=== PATIENT | female | born 1940 | race Caucasian/White ===

== ENCOUNTER → 2021-07-16 | Outpatient (CLI) | payer OTHER ==
[2021-07-16 14:08] LABS: BILIRUBIN,TOTAL 0.4 MG/DL (0.2-1.0); CREATININE FOR GFR 1.13 MG/DL (0.55-1.30); GLOMERULAR FILTRATION RATE 49.6 (>39); POTASSIUM SERUM 4.9 MEQ/L (3.5-5.1); THYROID STIMULATING HORMONE 1.81 uIU/ML (0.358-3.740); TOTAL 25(OH) VITAMIN D 29.4 NG/ML (30.0-100.0); TOTAL PROTEIN 7.1 GM/DL (6.4-8.2)
== END ==
LOC: M PLALAB 10:18
PROVIDERS: ATTEND Nurse Practitioner Adult Health
DX: E55.9 Vitamin D deficiency, unspecified (principal); E03.9 Hypothyroidism, unspecified; I12.9 Hypertensive chronic kidney disease with stage 1 through stage 4 chronic kidney disease, or unspecified chronic kidney disease; Z79.899 Other long term (current) drug therapy
CPT/HCPCS: 36415; 80053; 82306; 82607; 84443; G0463

== ENCOUNTER → 2022-01-05 | Outpatient (CLI) | payer OTHER ==
[2022-01-05 14:31] LABS: ALBUMIN 3.8 GM/DL (3.2-5.2); BILIRUBIN,TOTAL 0.3 MG/DL (0.2-1.0); CALCIUM LEVEL 10.6 MG/DL (8.8-10.2); CHOLESTEROL RISK RATIO 5.577 (<5); CREATININE FOR GFR 1.12 MG/DL (0.55-1.30); POTASSIUM SERUM 4.3 MEQ/L (3.5-5.1); THYROID STIMULATING HORMONE 0.054 uIU/ML (0.358-3.740); TOTAL PROTEIN 6.9 GM/DL (6.4-8.2)
== END ==
LOC: M PLALAB 11:00
PROVIDERS: ATTEND Nurse Practitioner Adult Health
DX: E55.9 Vitamin D deficiency, unspecified (principal); E07.9 Disorder of thyroid, unspecified; E78.00 Pure hypercholesterolemia, unspecified

== ENCOUNTER → 2022-04-14 | Outpatient (CLI) | payer OTHER ==
[2022-04-14 18:23] LABS: ALBUMIN 3.8 GM/DL (3.2-5.2); BILIRUBIN,TOTAL 0.4 MG/DL (0.2-1.0); CALCIUM LEVEL 10.6 MG/DL (8.8-10.2); CREATININE FOR GFR 1.29 MG/DL (0.55-1.30); GLOMERULAR FILTRATION RATE 42.4 (>39); THYROID STIMULATING HORMONE 0.021 uIU/ML (0.358-3.740); TOTAL PROTEIN 7.2 GM/DL (6.4-8.2)
== END ==
LOC: M PLAIMG 15:38 → M PLALAB 15:38
PROVIDERS: ATTEND Nurse Practitioner Adult Health
DX: M51.36 Other intervertebral disc degeneration, lumbar region (principal); M51.37 Other intervertebral disc degeneration, lumbosacral region; I51.7 Cardiomegaly; R91.8 Other nonspecific abnormal finding of lung field; M54.50 Low back pain, unspecified; R60.0 Localized edema; N18.31 Chronic kidney disease, stage 3a; E03.9 Hypothyroidism, unspecified

== ENCOUNTER → 2022-04-28 | Outpatient (CLI) | payer OTHER | LOC: M CARPUL 09:13 | PROVIDERS: ATTEND Nurse Practitioner Adult Health | DX: R60.0 Localized edema (principal); I70.0 Atherosclerosis of aorta; I34.0 Nonrheumatic mitral (valve) insufficiency ==

== ENCOUNTER → 2022-05-05 | Outpatient (REF) | payer OTHER | LOC: M SFHCPLAZ 10:52 | PROVIDERS: ATTEND Nurse Practitioner Adult Health | DX: R91.1 Solitary pulmonary nodule (principal); Z53.9 Procedure and treatment not carried out, unspecified reason ==

== ENCOUNTER → 2022-05-05 | Outpatient (CLI) | payer OTHER ==
[2022-05-05 12:28] LABS: CALCIUM LEVEL 10.3 MG/DL (8.8-10.2); CREATININE FOR GFR 1.94 MG/DL (0.55-1.30); GLOMERULAR FILTRATION RATE 26.5 (>39); POTASSIUM SERUM 4.7 MEQ/L (3.5-5.1)
== END ==
LOC: M LAB 10:48
PROVIDERS: ATTEND Nurse Practitioner Adult Health
DX: R91.1 Solitary pulmonary nodule (principal)

== ENCOUNTER → 2022-05-07 | Outpatient (CLI) | payer OTHER ==
[~2022-05-07] MED LIST: ISOVUE-370 76% 25ML SYRINGE As Ordered ONE
== END ==
LOC: M RAD 10:37
PROVIDERS: ATTEND Nurse Practitioner Adult Health
DX: R91.1 Solitary pulmonary nodule (principal); J98.4 Other disorders of lung; J47.9 Bronchiectasis, uncomplicated; R91.8 Other nonspecific abnormal finding of lung field
CPT/HCPCS: 71260; Q9967

== ENCOUNTER → 2022-06-12 | Outpatient (CLI) | payer OTHER ==
[2022-06-12 10:48] LABS: HEMATOCRIT 35.9 % (36.0-47.0); HEMOGLOBIN 11.7 g/dl (12.0-15.5); MEAN CORPUSCULAR HEMOGLOBIN 30.6 pg (27.0-33.0); MEAN CORPUSCULAR HGB CONC 32.6 g/dl (32.0-36.5); PLATELET COUNT, AUTOMATED 216 10^3/uL (150-450); RED BLOOD COUNT 3.82 10^6/uL (4.00-5.40); WHITE BLOOD COUNT 7.2 10^3/uL (4.0-10.0)
[2022-06-12 11:34] LABS: ALBUMIN 3.9 GM/DL (3.2-5.2); BILIRUBIN,TOTAL 0.4 MG/DL (0.2-1.0); CALCIUM LEVEL 10.7 MG/DL (8.8-10.2); CHOLESTEROL RISK RATIO 4.875 (<5); CREATININE FOR GFR 1.31 MG/DL (0.55-1.30); GLOMERULAR FILTRATION RATE 41.7 (>39); POTASSIUM SERUM 4.4 MEQ/L (3.5-5.1); THYROID STIMULATING HORMONE 0.028 uIU/ML (0.358-3.740); TOTAL PROTEIN 6.9 GM/DL (6.4-8.2)
== END ==
LOC: M PLALAB 07:14
PROVIDERS: ATTEND Nurse Practitioner Adult Health
DX: N18.31 Chronic kidney disease, stage 3a (principal); E03.9 Hypothyroidism, unspecified; E53.8 Deficiency of other specified B group vitamins; Z13.220 Encounter for screening for lipoid disorders

== ENCOUNTER 2022-10-25 00:05 | Inpatient (IN) | payer OTHER ==
[~2022-10-25] VITALS: Ht 162.6 cm; Wt 79.5 kg
[2022-10-25 00:58] LABS: BASO % 0.1 % (0.0-1.0); EOS % 0.1 % (0.0-3.0); HEMATOCRIT 39.8 % (36.0-47.0); HEMOGLOBIN 12.8 g/dl (12.0-15.5); LYMPH # 0.8 10^3/uL (1.5-5.0); LYMPH % 3.8 % (24.0-44.0); MEAN CORPUSCULAR HEMOGLOBIN 30.4 pg (27.0-33.0); MEAN CORPUSCULAR HGB CONC 32.2 g/dl (32.0-36.5); MEAN CORPUSCULAR VOLUME 94.5 fl (80.0-96.0); MONO # 0.8 10^3/uL (0.0-0.8); MONO % 3.7 % (2.0-8.0); NEUTROPHILS % 90.4 % (36.0-66.0); PLATELET COUNT, AUTOMATED 146 10^3/uL (150-450); RED BLOOD COUNT 4.21 10^6/uL (4.00-5.40)
[2022-10-25 01:08] LABS: PROTHROMBIN TIME 13.4 SECONDS (12.5-14.5)
[2022-10-25 01:14] LABS: LIPASE 25 U/L (12-53)
[2022-10-25 01:15] LABS: AMYLASE 59 U/L (30-118)
[2022-10-25] MEDS ORDERED: NS 1,390 ML in IV 1 EA IV ONE (01:15)
[2022-10-25] MEDS ORDERED: NS 1,000 ML IV ONE (01:15)
[2022-10-25 01:16] LABS: ALBUMIN 3.5 G/DL (3.2-5.2); ALKALINE PHOSPHATASE 167 U/L (46-116); ALT/SGPT 17 U/L (7.0-40); AST/SGOT 30 U/L (<34); BILIRUBIN,DIRECT 0.2 MG/DL (<0.4); BILIRUBIN,TOTAL 0.7 MG/DL (0.3-1.2); BLOOD UREA NITROGEN 25 MG/DL (9-23); CALCIUM LEVEL 9.8 MG/DL (8.3-10.6); CARBON DIOXIDE LEVEL 25 MMOL/L (20-31); CHLORIDE LEVEL 102 MMOL/L (98-107); CK-MB VALUE MASS < 1.0 NG/ML (<3.6); CPK CREATINE PHOSPHOKINASE 431 U/L (34-145); CREATININE FOR GFR 1.82 MG/DL (0.55-1.30); GLOMERULAR FILTRATION RATE 28.5 (>39); GLUCOSE, FASTING 129 MG/DL (74-106); MB/CK RELATIVE INDEX 0.23 (< OR =4); SODIUM LEVEL 141 MMOL/L (136-145); TOTAL PROTEIN 6.8 G/DL (5.7-8.2)
[2022-10-25 01:35] LABS: RSV AMPLIFICATION NEGATIVE (NEGATIVE)
[2022-10-25] MEDS ORDERED: PIPERACILLIN/TAZOBACTAM SOD 4.5 GM in D5W MINI-BAG PLUS 50 ML IV ONE (02:55)
[2022-10-25] MEDS ORDERED: CYAN1000VL INJ (04:50)
[2022-10-25] MEDS ORDERED: SERT50TA29 PO (04:50)
[2022-10-25] MEDS ORDERED: ALBU8.5H PO (04:50)
[2022-10-25] MEDS ORDERED: LOSA100T45 PO (04:50)
[2022-10-25] MEDS ORDERED: GABA-1171 PO (04:50)
[2022-10-25] MEDS ORDERED: TIZA10TA PO (04:50)
[2022-10-25] MEDS ORDERED: ALLO300T2 PO (04:50)
[2022-10-25] MEDS ORDERED: TORS10TA3 PO (04:50)
[2022-10-25] MEDS ORDERED: POTA-151 PO (04:50)
[2022-10-25] MEDS ORDERED: PRED10TA2 PO (04:50)
[2022-10-25] MEDS ORDERED: LEVO125T4 PO (04:50)
[2022-10-25] MEDS ORDERED: HOME MED LIST COMPLETE! XX SCH (04:55)
[2022-10-25] MEDS ORDERED: ALBUTEROL 90 MCG/ACT 8GM HFA INHALER INH PRN ×2 (07:40→08:35)
[2022-10-25 07:59] VITALS: BP 144/69
[2022-10-25] MEDS: NS 1,000 ML IV SCH ×2 (08:12→20:05)
[2022-10-25] MEDS: PIPERACILLIN/TAZOBACTAM SOD 2.25 GM in D5W MINI-BAG PLUS 50 ML IV SCH ×3 (08:12→20:05)
[2022-10-25] MEDS: HEPARIN SOD (PORCINE) 5000UNITS/ML 1ML VIAL/SYRINGE SC SCH ×2 (08:13→20:06)
[2022-10-25] MEDS ORDERED: PILL CUTTER 1 EACH XX PRN (08:50)
[2022-10-25] MEDS: allopurinoL 300 MG TAB PO SCH (09:35)
[2022-10-25] MEDS: SERTRALINE HCL 50 MG TAB PO SCH (09:36)
[2022-10-25] MEDS: LEVOTHYROXINE 125MCG TABLET (0.125MG) PO SCH (09:36)
[2022-10-25 16:04] VITALS: BP 119/52
[2022-10-25 16:30] VITALS: BP 134/59
[2022-10-25 20:00] VITALS: BP 108/58
[2022-10-25] MEDS: ACETAMINOPHEN TAB 650MG DOSE (2X325MG) PO PRN (20:05)
[2022-10-25] MEDS: tiZANidine 4 MG TAB PO SCH (20:06)
[2022-10-25] MEDS: GABAPENTIN 100 MG CAP PO SCH (20:06)
[2022-10-26] MEDS: PIPERACILLIN/TAZOBACTAM SOD 2.25 GM in D5W MINI-BAG PLUS 50 ML IV SCH ×3 (01:21→15:41)
[2022-10-26 04:00] VITALS: BP 110/59
[2022-10-26] MEDS: LEVOTHYROXINE 125MCG TABLET (0.125MG) PO SCH (05:11)
[2022-10-26] MEDS: NS 1,000 ML IV SCH (05:12)
[2022-10-26 06:06] LABS: CALCIUM LEVEL 8.7 MG/DL (8.3-10.6); CREATININE FOR GFR 1.5 MG/DL (0.55-1.30); GLOMERULAR FILTRATION RATE 35.6 (>32); POTASSIUM SERUM 4.4 MMOL/L (3.5-5.1)
[2022-10-26 07:39] LABS: BASO % 0.1 % (0.0-1.0); EOS # 0.1 10^3/uL (0.0-0.5); HEMATOCRIT 28.3 % (36.0-47.0); LYMPH # 2.5 10^3/uL (1.5-5.0); MEAN CORPUSCULAR HEMOGLOBIN 30.6 pg (27.0-33.0); MEAN CORPUSCULAR HGB CONC 31.8 g/dl (32.0-36.5); MEAN CORPUSCULAR VOLUME 96.3 fl (80.0-96.0); MONO # 1.2 10^3/uL (0.0-0.8); MONO % 8.5 % (2.0-8.0); NEUTROPHILS # 10.1 10^3/uL (1.5-8.5); NEUTROPHILS % 71.5 % (36.0-66.0); RED BLOOD COUNT 2.94 10^6/uL (4.00-5.40); WHITE BLOOD COUNT 14.1 10^3/uL (4.0-10.0)
[2022-10-26 08:09] VITALS: BP 108/50
[2022-10-26] MEDS: allopurinoL 300 MG TAB PO SCH (09:03)
[2022-10-26] MEDS: SERTRALINE HCL 50 MG TAB PO SCH (09:03)
[2022-10-26] MEDS: ACETAMINOPHEN TAB 650MG DOSE (2X325MG) PO PRN ×2 (09:03→18:18)
[2022-10-26] MEDS: HEPARIN SOD (PORCINE) 5000UNITS/ML 1ML VIAL/SYRINGE SC SCH (09:03)
[2022-10-26 09:20] LABS: PLATELET COUNT, AUTOMATED 83 10^3/uL (150-450)
[2022-10-26 16:14] VITALS: BP 133/61
[2022-10-26] MEDS ORDERED: RIVAROXABAN 10MG TAB (XARELTO) PO SCH (18:00)
[2022-10-26] MEDS ORDERED: guaiFENesin DM LIQ 10ML UD PO PRN (18:30)
[2022-10-26] MEDS ORDERED: BENZONATATE 100MG CAPSULE PO PRN (18:30)
[2022-10-26 19:31] VITALS: BP 136/60
[2022-10-26] MEDS: GABAPENTIN 100 MG CAP PO SCH (20:50)
[2022-10-26] MEDS: tiZANidine 4 MG TAB PO SCH (20:50)
[2022-10-26] MEDS: PIPERACILLIN/TAZOBACTAM SOD 3.375 GM in D5W MINI-BAG PLUS 50 ML IV SCH (20:50)
[2022-10-27] MEDS: PIPERACILLIN/TAZOBACTAM SOD 3.375 GM in D5W MINI-BAG PLUS 50 ML IV SCH ×2 (02:33→08:00)
[2022-10-27 04:30] LABS: BASO % 0.3 % (0.0-1.0); EOS # 0.2 10^3/uL (0.0-0.5); EOS % 1.8 % (0.0-3.0); HEMOGLOBIN 9.1 g/dl (12.0-15.5); LYMPH # 2.1 10^3/uL (1.5-5.0); LYMPH % 21.3 % (24.0-44.0); MEAN CORPUSCULAR HEMOGLOBIN 30.6 pg (27.0-33.0); MEAN CORPUSCULAR HGB CONC 32.5 g/dl (32.0-36.5); MEAN CORPUSCULAR VOLUME 94.3 fl (80.0-96.0); MONO # 0.9 10^3/uL (0.0-0.8); MONO % 8.8 % (2.0-8.0); NEUTROPHILS # 6.5 10^3/uL (1.5-8.5); NEUTROPHILS % 66.6 % (36.0-66.0); RED BLOOD COUNT 2.97 10^6/uL (4.00-5.40); WHITE BLOOD COUNT 9.7 10^3/uL (4.0-10.0)
[2022-10-27 04:31] LABS: PLATELET COUNT, AUTOMATED 86 10^3/uL (150-450)
[2022-10-27 04:46] VITALS: BP 102/50
[2022-10-27] MEDS: LEVOTHYROXINE 125MCG TABLET (0.125MG) PO SCH (05:00)
[2022-10-27 05:03] LABS: C REACTIVE PROTEIN QUANTITATIV 10.5 MG/DL (<1.0); CALCIUM LEVEL 8.4 MG/DL (8.3-10.6); CREATININE FOR GFR 1.4 MG/DL (0.55-1.30); GLOMERULAR FILTRATION RATE 38.5 (>32); POTASSIUM SERUM 4.1 MMOL/L (3.5-5.1)
[2022-10-27] MEDS ORDERED: LevoFLOXacin 750 MG TABLET PO SCH ×2 (06:00→14:00)
[2022-10-27 08:00] VITALS: BP 123/59
[2022-10-27] MEDS: allopurinoL 300 MG TAB PO SCH (09:05)
[2022-10-27] MEDS: SERTRALINE HCL 50 MG TAB PO SCH (09:05)
[2022-10-27 12:00] VITALS: BP 112/56
[2022-10-27 15:20] LABS: ERYTHROCYTE SEDIMENTATION RATE 18 mm/hr (0-30)
[2022-10-27] MEDS ORDERED: LEVO1TAB40 PO (15:40)
== END 2022-10-27 17:44 | disposition home or self-care (01) | DRG 872 ==
LOC: M ED 00:05 → EDBD 00:05 → M ED INP 04:29 → ENRESERV 15:29 → M PCU 16:30
PROVIDERS: ADMIT Internal Medicine; ATTEND Internal Medicine
DX: A41.9 Sepsis, unspecified organism (principal); E87.20 Acidosis, unspecified; A09 Infectious gastroenteritis and colitis, unspecified; N17.9 Acute kidney failure, unspecified; I50.32 Chronic diastolic (congestive) heart failure; F32.A Depression, unspecified; I11.0 Hypertensive heart disease with heart failure; E03.9 Hypothyroidism, unspecified; M10.9 Gout, unspecified; J45.909 Unspecified asthma, uncomplicated; R54 Age-related physical debility; M62.830 Muscle spasm of back; Z87.891 Personal history of nicotine dependence; Z79.890 Hormone replacement therapy; Z79.899 Other long term (current) drug therapy

== ENCOUNTER → 2022-10-30 | Outpatient (CLI) | payer OTHER ==
[~2022-10-30] MED LIST changes: +ALBU8.5H PO; +ALLO300T2 PO; +CYAN1000VL INJ; +GABA-1171 PO; -ISOVUE-370 76% 25ML SYRINGE As Ordered ONE; +LEVO125T4 PO; +LEVO1TAB40 PO; +LOSA100T45 PO; +POTA-151 PO; +PRED10TA2 PO; +SERT50TA29 PO; +TIZA10TA PO; +TORS10TA3 PO
[2022-10-30 10:34] LABS: BASO # 0.1 10^3/uL (0.0-0.2); BASO % 0.5 % (0.0-1.0); EOS # 0.2 10^3/uL (0.0-0.5); EOS % 1.9 % (0.0-3.0); HEMATOCRIT 34.8 % (36.0-47.0); HEMOGLOBIN 11.3 g/dl (12.0-15.5); LYMPH # 2.8 10^3/uL (1.5-5.0); LYMPH % 23.8 % (24.0-44.0); MEAN CORPUSCULAR HEMOGLOBIN 30.6 pg (27.0-33.0); MEAN CORPUSCULAR HGB CONC 32.5 g/dl (32.0-36.5); MEAN CORPUSCULAR VOLUME 94.3 fl (80.0-96.0); MONO % 8.2 % (2.0-8.0); NEUTROPHILS # 7.3 10^3/uL (1.5-8.5); NEUTROPHILS % 61.6 % (36.0-66.0); PLATELET COUNT, AUTOMATED 204 10^3/uL (150-450); RED BLOOD COUNT 3.69 10^6/uL (4.00-5.40); WHITE BLOOD COUNT 11.8 10^3/uL (4.0-10.0)
[2022-10-30 11:02] LABS: CALCIUM LEVEL 9.9 MG/DL (8.3-10.6); CREATININE FOR GFR 1.19 MG/DL (0.55-1.30); GLOMERULAR FILTRATION RATE 46.5 (>32)
== END ==
LOC: M PLALAB 07:48
PROVIDERS: ATTEND Physician Assistant
DX: N17.9 Acute kidney failure, unspecified (principal); A41.9 Sepsis, unspecified organism

== ENCOUNTER → 2022-12-07 | Outpatient (CLI) | payer OTHER ==
[2022-12-07 16:35] LABS: ALBUMIN 3.6 G/DL (3.2-5.2); BILIRUBIN,TOTAL 0.5 MG/DL (0.3-1.2); CALCIUM LEVEL 10.2 MG/DL (8.3-10.6); CREATININE FOR GFR 1.11 MG/DL (0.55-1.30); GLOMERULAR FILTRATION RATE 50.3 (>32); POTASSIUM SERUM 3.9 MMOL/L (3.5-5.1); THYROID STIMULATING HORMONE 0.392 uIU/ML (0.55-4.78); TOTAL PROTEIN 6.7 G/DL (5.7-8.2)
== END ==
LOC: M PLALAB 13:54
PROVIDERS: ATTEND Nurse Practitioner Adult Health
DX: E03.9 Hypothyroidism, unspecified (principal); N18.31 Chronic kidney disease, stage 3a

== ENCOUNTER → 2023-01-19 | Outpatient (CLI) | payer OTHER ==
[2023-01-19 16:03] LABS: HEMATOCRIT 37.8 % (36.0-47.0); HEMOGLOBIN 12.2 g/dl (12.0-15.5); MEAN CORPUSCULAR HEMOGLOBIN 28.4 pg (27.0-33.0); MEAN CORPUSCULAR HGB CONC 32.3 g/dl (32.0-36.5); MEAN CORPUSCULAR VOLUME 87.9 fl (80.0-96.0); PLATELET COUNT, AUTOMATED 250 10^3/uL (150-450); WHITE BLOOD COUNT 8.6 10^3/uL (4.0-10.0)
[2023-01-19 17:06] LABS: ALBUMIN 4.2 G/DL (3.2-5.2); BILIRUBIN,TOTAL 0.5 MG/DL (0.3-1.2); CALCIUM LEVEL 10.3 MG/DL (8.3-10.6); CREATININE FOR GFR 1.22 MG/DL (0.55-1.30); GLOMERULAR FILTRATION RATE 45.1 (>32); POTASSIUM SERUM 3.9 MMOL/L (3.5-5.1); THYROID STIMULATING HORMONE 11.297 uIU/ML (0.55-4.78); TOTAL PROTEIN 7.3 G/DL (5.7-8.2)
== END ==
LOC: M PLALAB 13:38
PROVIDERS: ATTEND Nurse Practitioner Adult Health
DX: E03.9 Hypothyroidism, unspecified (principal); N18.31 Chronic kidney disease, stage 3a

== ENCOUNTER → 2023-04-27 | Outpatient (CLI) | payer OTHER ==
[~2023-04-27] MED LIST changes: -LOSA100T45 PO; +LOSA100T46 PO
[2023-04-27 18:38] LABS: THYROID STIMULATING HORMONE 0.603 uIU/ML (0.55-4.78)
[2023-04-27 18:39] LABS: ALBUMIN 4.2 G/DL (3.2-5.2); ALKALINE PHOSPHATASE 110 U/L (46-116); ALT/SGPT < 9 U/L (7.0-40); AST/SGOT 13 U/L (<34); BILIRUBIN,TOTAL 0.4 MG/DL (0.3-1.2); BLOOD UREA NITROGEN 26 MG/DL (9-23); CALCIUM LEVEL 10.6 MG/DL (8.3-10.6); CARBON DIOXIDE LEVEL 30 MMOL/L (20-31); CHLORIDE LEVEL 104 MMOL/L (98-107); CREATININE FOR GFR 1.28 MG/DL (0.55-1.30); GLOMERULAR FILTRATION RATE 42.7 (>32); GLUCOSE, FASTING 92 MG/DL (74-106); POTASSIUM SERUM 4.1 MMOL/L (3.5-5.1); SODIUM LEVEL 141 MMOL/L (136-145); TOTAL PROTEIN 7.8 G/DL (5.7-8.2)
== END ==
LOC: M PLALAB 15:53
PROVIDERS: ATTEND Nurse Practitioner Adult Health
DX: N18.31 Chronic kidney disease, stage 3a (principal); E03.9 Hypothyroidism, unspecified

== ENCOUNTER → 2023-05-17 | Outpatient (CLI) | payer OTHER | LOC: M RAD 10:31 | PROVIDERS: ATTEND Internal Medicine Critical Care Medicine | DX: R91.8 Other nonspecific abnormal finding of lung field (principal); J90 Pleural effusion, not elsewhere classified; K44.9 Diaphragmatic hernia without obstruction or gangrene ==

== ENCOUNTER → 2023-07-27 | Outpatient (CLI) | payer OTHER ==
[2023-07-27 18:45] LABS: ALBUMIN 3.8 G/DL (3.2-5.2); BILIRUBIN,TOTAL 0.4 MG/DL (0.3-1.2); CALCIUM LEVEL 10.3 MG/DL (8.3-10.6); CREATININE FOR GFR 1.34 MG/DL (0.55-1.30); GLOMERULAR FILTRATION RATE 40.5 (>32); POTASSIUM SERUM 4.4 MMOL/L (3.5-5.1); TOTAL PROTEIN 7.1 G/DL (5.7-8.2)
[2023-07-27 18:46] LABS: THYROID STIMULATING HORMONE 0.996 uIU/ML (0.55-4.78)
== END ==
LOC: M PLALAB 16:33
PROVIDERS: ATTEND Nurse Practitioner Adult Health
DX: N18.31 Chronic kidney disease, stage 3a (principal); E03.9 Hypothyroidism, unspecified; E53.8 Deficiency of other specified B group vitamins; R30.0 Dysuria

== ENCOUNTER → 2023-12-08 | Outpatient (REF) | payer OTHER | LOC: M SFHCPLAZ 17:07 | PROVIDERS: ATTEND Nurse Practitioner Adult Health | DX: R09.81 Nasal congestion (principal) ==

== ENCOUNTER → 2024-01-17 | Outpatient (CLI) | payer OTHER ==
[2024-01-17 15:45] LABS: ALBUMIN 3.9 G/DL (3.2-5.2); BILIRUBIN,TOTAL 0.4 MG/DL (0.3-1.2); CALCIUM LEVEL 10.7 MG/DL (8.3-10.6); CHOLESTEROL RISK RATIO 4.57 (<5); CREATININE FOR GFR 1.23 MG/DL (0.55-1.30); GLOMERULAR FILTRATION RATE 44.6 (>32); HDL CHOLESTEROL 53.3 MG/DL (>40); LDL CHOLESTEROL 151.7 MG/DL (<100); NON-HDL-C 190.7 MG/DL; POTASSIUM SERUM 4.4 MMOL/L (3.5-5.1); THYROID STIMULATING HORMONE 21.255 uIU/ML (0.55-4.78); TOTAL 25(OH) VITAMIN D 26.3 NG/ML (20.0-100.0); TOTAL PROTEIN 7.1 G/DL (5.7-8.2)
== END ==
LOC: M PLALAB 13:46
PROVIDERS: ATTEND Nurse Practitioner Adult Health
DX: Z00.00 Encounter for general adult medical examination without abnormal findings (principal); N18.31 Chronic kidney disease, stage 3a; E55.9 Vitamin D deficiency, unspecified; E53.8 Deficiency of other specified B group vitamins; E78.2 Mixed hyperlipidemia

== ENCOUNTER → 2024-03-07 | Outpatient (CLI) | payer OTHER | LOC: M RAD 14:10 | PROVIDERS: ATTEND Internal Medicine Critical Care Medicine | DX: R91.8 Other nonspecific abnormal finding of lung field (principal); K44.9 Diaphragmatic hernia without obstruction or gangrene; I25.10 Atherosclerotic heart disease of native coronary artery without angina pectoris; R59.0 Localized enlarged lymph nodes ==

== ENCOUNTER → 2024-04-10 | Outpatient (REF) | payer OTHER ==
[2024-04-10 18:27] LABS: BILIRUBIN,TOTAL 0.4 MG/DL (0.3-1.2); CALCIUM LEVEL 10.6 MG/DL (8.3-10.6); CREATININE FOR GFR 1.28 MG/DL (0.55-1.30); GLOMERULAR FILTRATION RATE 42.6 (>32); MAGNESIUM LEVEL 2.1 MG/DL (1.8-2.4); TOTAL PROTEIN 7.2 G/DL (5.7-8.2)
[2024-04-10 18:29] LABS: THYROID STIMULATING HORMONE 2.194 uIU/ML (0.55-4.78)
[2024-04-10 18:30] LABS: FREE T4 1.35 NG/DL (0.89-1.76)
== END ==
LOC: M LABDRAWP 17:08
PROVIDERS: ATTEND Nurse Practitioner Adult Health
DX: Z00.00 Encounter for general adult medical examination without abnormal findings (principal); N18.31 Chronic kidney disease, stage 3a; E03.9 Hypothyroidism, unspecified; E53.8 Deficiency of other specified B group vitamins

== ENCOUNTER → 2024-07-11 | Outpatient (CLI) | payer OTHER ==
[2024-07-11 18:41] LABS: ALBUMIN 4.1 G/DL (3.2-5.2); BILIRUBIN,TOTAL 0.4 MG/DL (0.3-1.2); CALCIUM LEVEL 10.9 MG/DL (8.3-10.6); CHOLESTEROL RISK RATIO 5.68 (<5); CREATININE FOR GFR 1.35 MG/DL (0.55-1.30); GLOMERULAR FILTRATION RATE 40.1 (>32); HDL CHOLESTEROL 49.6 MG/DL (>40); LDL CHOLESTEROL 175.2 MG/DL (<100); MAGNESIUM LEVEL 1.8 MG/DL (1.8-2.4); NON-HDL-C 232.4 MG/DL; POTASSIUM SERUM 4.5 MMOL/L (3.5-5.1); TOTAL PROTEIN 7.4 G/DL (5.7-8.2)
[2024-07-11 18:43] LABS: FREE T4 1.5 NG/DL (0.89-1.76); THYROID STIMULATING HORMONE 0.841 uIU/ML (0.55-4.78)
== END ==
LOC: M PLALAB 15:54
PROVIDERS: ATTEND Nurse Practitioner Adult Health
DX: N18.31 Chronic kidney disease, stage 3a (principal); E03.9 Hypothyroidism, unspecified; E55.9 Vitamin D deficiency, unspecified

== ENCOUNTER → 2024-08-05 | Outpatient (CLI) | payer OTHER | LOC: M RAD 14:37 | PROVIDERS: ATTEND Nurse Practitioner Adult Health | DX: R27.8 Other lack of coordination (principal) ==

== ENCOUNTER → 2025-01-24 | Outpatient (CLI) | payer OTHER ==
[2025-01-24 18:22] LABS: BILIRUBIN,TOTAL 0.6 MG/DL (0.3-1.2); CALCIUM LEVEL 11.1 MG/DL (8.3-10.6); CHOLESTEROL RISK RATIO 3.54 (<5); CREATININE FOR GFR 1.09 MG/DL (0.55-1.30); FREE T4 1.45 NG/DL (0.89-1.76); GLOMERULAR FILTRATION RATE 50.7 (>32); HDL CHOLESTEROL 57.8 MG/DL (>40); LDL CHOLESTEROL 105.4 MG/DL (<100); MAGNESIUM LEVEL 1.9 MG/DL (1.8-2.4); NON-HDL-C 147.2 MG/DL; POTASSIUM SERUM 4.3 MMOL/L (3.5-5.1); TOTAL PROTEIN 7.2 G/DL (5.7-8.2)
[2025-01-24 18:25] LABS: THYROID STIMULATING HORMONE 0.266 uIU/ML (0.55-4.78)
== END ==
LOC: M PLALAB 16:09
PROVIDERS: ATTEND Nurse Practitioner Adult Health
DX: N18.31 Chronic kidney disease, stage 3a (principal); E03.9 Hypothyroidism, unspecified; E78.2 Mixed hyperlipidemia; E55.9 Vitamin D deficiency, unspecified; E53.8 Deficiency of other specified B group vitamins

== ENCOUNTER → 2025-07-09 | Outpatient (REF) | payer OTHER | LOC: M SFHCPLAZ 16:57 | PROVIDERS: ATTEND Nurse Practitioner Adult Health | DX: R09.81 Nasal congestion (principal) ==

== ENCOUNTER → 2025-07-16 | Outpatient (CLI) | payer OTHER ==
[2025-07-16 18:26] LABS: ALT/SGPT 10.0 U/L (7.0-40); AST/SGOT 15.0 U/L (<34); CALCIUM LEVEL 10.0 MG/DL (8.3-10.6); CARBON DIOXIDE LEVEL 24.0 MMOL/L (20-31); CHLORIDE LEVEL 107.0 MMOL/L (98-107); CHOLESTEROL LEVEL 217.0 MG/DL (<200); CHOLESTEROL RISK RATIO 3.74 (<5); CREATININE FOR GFR 1.48 MG/DL (0.55-1.30); FREE T4 1.25 NG/DL (0.89-1.76); GLOMERULAR FILTRATION RATE 35.1 (>32); LDL CHOLESTEROL 121.9 MG/DL (<100); MAGNESIUM LEVEL 2.0 MG/DL (1.8-2.4); NON-HDL-C 159.1 MG/DL; POTASSIUM SERUM 3.7 MMOL/L (3.5-5.1); SODIUM LEVEL 143.0 MMOL/L (136-145); TRIGLYCERIDES LEVEL 186.0 MG/DL (<150)
== END ==
LOC: M PLALAB 14:34
PROVIDERS: ATTEND Nurse Practitioner Adult Health
DX: N18.31 Chronic kidney disease, stage 3a (principal); E03.9 Hypothyroidism, unspecified; E78.2 Mixed hyperlipidemia; E55.9 Vitamin D deficiency, unspecified; M1A.09X0 Idiopathic chronic gout, multiple sites, without tophus (tophi)

== ENCOUNTER → 2025-10-04 | Outpatient (REF) | payer OTHER ==
[2025-10-04 17:56] LABS: APPEARANCE, URINE CLEAR (CLEAR); BACTERIA, URINE AUTO NEGATIVE (NEGATIVE); BILIRUBIN, URINE AUTO NEGATIVE (NEGATIVE); BLOOD, URINE BLOOD NEGATIVE (NEGATIVE); GLUCOSE, URINE (UA) AUTO NEGATIVE (NEGATIVE); KETONE, URINE AUTO NEGATIVE (NEGATIVE); LEUKOCYTE ESTERASE, URINE AUTO NEGATIVE (NEGATIVE); NITRITE, URINE AUTO NEGATIVE (NEGATIVE); PROTEIN, URINE AUTO NEGATIVE (NEGATIVE); RBC, URINE AUTO 0 /HPF (0-3); SPECIFIC GRAVITY URINE AUTO 1.010 (1.002-1.035); SQUAMOUS EPITHELIAL CELL UR AU 1 /HPF (0-6); UROBILINOGEN, URINE AUTO 0.2 mg/dL (0.0-2.0); WBC, URINE AUTO 1 /HPF (0-3)
== END ==
LOC: M SMT 16:57
PROVIDERS: ATTEND Urology
DX: N39.0 Urinary tract infection, site not specified (principal)